=== PATIENT | male | born 1950 | race Caucasian/White ===

== ENCOUNTER 2021-08-26 17:59 | Emergency (ER) | payer OTHER, SELFPAY ==
[2021-08-26] VITALS (15 sets, daily range): BP systolic 106–152; BP diastolic 58–79; PULSE 54–63; RESP 14–22; TEMP 36.3; O2SAT 93–97; BMI 35.9
--- NOTE | 2021-08-26 18:41 | DI.RAD.S_ITS ---
PROCEDURE: XR CHEST 1V INDICATIONS: chest pain TECHNIQUE: One view of the chest was acquired. COMPARISON: None. FINDINGS: Surgical changes and devices: There is a leadless pacing device in the left upper thorax. Surgical fusion at the cervicothoracic junction. Lungs and pleura: Lungs are clear. No pleural effusions or pneumothorax. Mediastinum: Mediastinal contours appear normal. Heart size is normal. Bones and chest wall: No suspicious bony lesions. Overlying soft tissues appear unremarkable. IMPRESSION: No acute cardiopulmonary disease. Dictated by: Gianna Valverde M.D. on 08/26/2021 at 19:33 Approved by: Gianna Valverde M.D. on 08/26/2021 at 19:39
--- NOTE | 2021-08-26 18:41 | ED.CHESTPAIN ---
HPI - Chest Pain General Chief Complaint: Chest Pain Stated Complaint: Palps/Anxiety, Has Zio Patch Time Seen by Provider: 08/26/21 18:07 Source: patient and family Mode of arrival: Ambulatory Limitations: no limitations History of Present Illness HPI narrative: 71-year-old male former smoker with history of chest pain, currently wearing a ZIO patch to evaluate for palpitations presents with his in the chief complaint of a sudden onset sharp and stabbing chest pain across his anterior chest that started a few hours prior to his arrival. It seems to come and go at times with a mind of his own but certainly with a big deep breath. It largely resolved prior to his arrival. He denies any heaviness or squeezing. He denies any radiation to his back or jaw. He is not dizzy nor weak or lightheaded but does admit to some hacking cough for some time. He has had no fever chills. He denies any exertional symptoms or any recent exercise intolerance. He has had no history of blood clot, recent travel, known cancer or use of any hormone replacement Related Data Home Medications Medication Instructions Recorded Confirmed omeprazole 20 mg capsule,delayed 20 mg PO QDAY #0 08/30/17 release Allergies Allergy/AdvReac Type Severity Reaction Status Date / Time DIARY PRODUCTS Allergy Intermediate NASAL Uncoded 02/18/18 12:21 CONGESTION IV CONTRAST IODINE Allergy Mild SWELL UP Uncoded 02/18/18 12:21 AND Review of Systems Review of Systems Narrative: GENERAL: Denies chills, fatigue, malaise, fever, sweats. HEENT: Denies sinus pain, ear pain, sore throat, difficulty swallowing, dizziness. RESPIRATORY: Denies dyspnea, cough, wheezing, hemoptysis, sputum. CARDIOVASCULAR: See HPI GASTROINTESTINAL: Denies nausea, vomiting, abdominal pain, diarrhea, constipation, melena. : Denies dysuria, frequency, incontinence, hematuria, urinary retention. MUSCULOSKELETAL: denies weakness, joint pain, or bony pain SKIN: Denies rash, skin lesions, or other NEUROLOGIC: Denies weakness, headache, numbness, change in speech, confusion, seizures, incoordination. PSYCHIATRIC: No concerning psychosocial issues. 12 point review of systems is negative except for those stated above Patient History Social History Smoking Status: Former smoker Smoking Status: Former smoker alcohol intake frequency: holidays/special occasions only Substance Use Type: does not use Exam Narrative Exam Narrative: GENERAL: [71 year old patient appears stated age. Well-developed patient, in mild distress. HEAD: Atraumatic. Normocephalic. EYES: Pupils equal round and reactive. Extraocular motions intact. No scleral icterus. No injection or drainage. ENT: Nose without bleeding, purulent drainage. Throat without erythema, tonsillar hypertrophy or exudate. Airway patent. NECK: Trachea midline. Non tender CARDIOVASCULAR: Regular rate and rhythm without murmurs, gallops, or rubs. RESPIRATORY: Clear to auscultation. Breath sounds equal bilaterally. No wheezes, rales, or rhonchi. GASTROINTESTINAL: Abdomen soft, non-tender, nondistended. EXTREMITIES: No edema or joint tenderness. BACK: Nontender without deformity or crepitance. No flank tenderness. NEURO: AOx3. SKIN: No rash or erythema of visible areas Initial Vital Signs Initial Vital Signs: Vital Signs Temperature 97.3 F L 08/26/21 18:28 Pulse Rate 63 08/26/21 18:28 Respiratory Rate 18 08/26/21 18:28 Blood Pressure 135/78 08/26/21 18:28 Pulse Oximetry 96 08/26/21 18:28 Scores PERC Score Age greater than or equal to 50 years: Yes Heart rate greater than or equal to 100 bpm: No Room Air O2 Sat less than 95%: No Unilateral leg swelling: No Recent trauma or surgery: No Hemoptysis: No Prior PE or DVT: No Hormone Use: No Total PERC Score: 1 Wells' Criteria for PE Clinical signs and symptoms of DVT: No PE is #1 Dx or equally likely: No Heart rate > 100: No Immobilization at least 3 days or surg in previous 4 weeks: No History of PE or DVT: No Hemoptysis: No Malignancy w/Treatment within 6 months or palliative: No Wells' PE Score total: 0 Course Orders Ordered: ED Orders 08/26/21 18:35 EKG-12 Lead Stat 08/26/21 18:41 XR chest 1V Stat 08/26/21 19:20 Complete Blood Count AUTO DIFF Stat Comprehensive Metabolic Panel Stat Lipase Stat Troponin & CK Cardiac Panel Stat 08/26/21 19:26 D Dimer Stat 08/26/21 21:15 Troponin & CK Cardiac Panel Stat 08/26/21 21:20 EKG-12 Lead Stat 08/26/21 23:10 CT angio chest PE protocol Stat Discontinued Medications Diphenhydramine HCl (Diphenhydramine 50 Mg/Ml Vial) 25 mg IV NOW ONE Stop: 08/26/21 21:54 Last Admin: 08/26/21 22:06 Dose: 25 mg Documented by: DONAVON Famotidine (Famotidine 20 Mg/2 Ml Vial) 20 mg IV NOW [facility] Last Admin: 08/26/21 22:06 Dose: 20 mg Documented by: DONAVON Sodium Chloride (Normal Saline 0.9%) 1,000 mls @ 150 mls/hr IV CONT [facility] Last Infusion: 08/27/21 00:26 Dose: 0 mls/hr Documented by: Admin: 08/26/21 19:43 Dose: 150 mls/hr Documented by: DONAVON Methylprednisolone (Methylprednisolone 125 Mg/2 Ml Vial) 125 mg IV NOW ONE Stop: 08/26/21 21:54 Last Admin: 08/26/21 22:06 Dose: 125 mg Documented by: DONAVON Vital Signs Vital signs: Vital Signs - 8 hr 08/26/21 19:30 08/26/21 20:00 08/26/21 20:26 Pulse Rate 58 L 56 L Respiratory Rate 14 20 15 Blood Pressure 130/69 106/58 L Pulse Oximetry 94 95 93 08/26/21 20:30 08/26/21 21:00 08/26/21 21:30 Pulse Rate 57 L 57 L 56 L Respiratory Rate 14 18 19 Blood Pressure 113/60 115/68 Pulse Oximetry 93 94 94 08/26/21 22:00 08/26/21 22:01 08/26/21 22:30 Pulse Rate 54 L 54 L 56 L Respiratory Rate 17 19 Blood Pressure 127/60 Pulse Oximetry 94 94 96 08/26/21 22:31 08/26/21 23:00 08/26/21 23:24 Pulse Rate 56 L 58 L 60 Respiratory Rate 19 22 14 Blood Pressure 134/63 126/79 152/70 H Pulse Oximetry 95 96 97 MDM - Chest Pain Lab Data Result diagrams: 08/26/21 19:20 08/26/21 19:20 Labs: Lab Results 10/17/21 10/17/21 10/17/21 Range/Units 19:20 19:20 19:26 WBC 7.5 (4.5-11.0) X10^3/uL RBC 4.45 L (4.5-5.9) X10^6/uL Hgb 14.5 (13.5-17.5) g/dL Hct 42.4 (41-53) % MCV 95.5 (80-100) fL MCH 32.6 (26-34) PG MCHC 34.1 (30-36) % RDW 13.4 (11.6-14.8) % Plt Count 194 (150-400) X10^3/uL Neut % (Auto) 54.3 (50-75) % Lymph % (Auto) 30.5 (25-40) % Screven % (Auto) 8.4 (3-14) % Eos % (Auto) 6.3 H (2-4) % Baso % (Auto) 0.5 (0-2) % Neut # (Auto) 4100 (0622-5273) /uL Lymph # (Auto) 2300 (6436-5260) /uL Screven # (Auto) 600 (0-900) /uL Eos # (Auto) 500 H (0-450) /uL Baso # (Auto) 0 (0-100) /uL D-Dimer 380 H (<230) ng/mL Sodium 138 (137-145) mmol/L Potassium 4.4 (3.4-5.1) mmol/L Chloride 104 (98-107) mmol/L Carbon Dioxide 25 (22-32) mmol/L BUN 20 (9-20) mg/dL Creatinine 1.14 (0.66-1.25) mg/dL Estimated GFR > 60.0 (>60) mL/min BUN/Creatinine Ratio 17.5 (6-22) Glucose 147 H (80-110) mg/dL Calcium 9.0 (8.4-10.2) mg/dL Total Bilirubin 0.4 (0.2-1.3) mg/dL AST 41 (17-59) IU/L ALT 35 (<50) IU/L Alkaline Phosphatase 76 (38-126) U/L Total Creatine Kinase 143 (55-170) U/L CK-MB (CK-2) 2.14 (<2.37) ng/mL CK-MB (CK-2) Rel Index 1.5 (1.5-5.0) % Troponin I < 0.012 (0.01-0.034) ng/mL Total Protein 7.3 (6.3-8.2) g/dL Albumin 4.3 (3.5-5.0) g/dL Globulin 3.0 (1.7-4.1) g/dL Albumin/Globulin Ratio 1.4 (1.0-2.8) Lipase 176 (23-300) U/L 08/26/21 Range/Units 21:15 WBC (4.5-11.0) X10^3/uL RBC (4.5-5.9) X10^6/uL Hgb (13.5-17.5) g/dL Hct (41-53) % MCV (80-100) fL MCH (26-34) PG MCHC (30-36) % RDW (11.6-14.8) % Plt Count (150-400) X10^3/uL Neut % (Auto) (50-75) % Lymph % (Auto) (25-40) % Screven % (Auto) (3-14) % Eos % (Auto) (2-4) % Baso % (Auto) (0-2) % Neut # (Auto) (6222-1017) /uL Lymph # (Auto) (3561-7176) /uL Screven # (Auto) (0-900) /uL Eos # (Auto) (0-450) /uL Baso # (Auto) (0-100) /uL D-Dimer (<230) ng/mL Sodium (137-145) mmol/L Potassium (3.4-5.1) mmol/L Chloride (98-107) mmol/L Carbon Dioxide (22-32) mmol/L BUN (9-20) mg/dL Creatinine (0.66-1.25) mg/dL Estimated GFR (>60) mL/min BUN/Creatinine Ratio (6-22) Glucose (80-110) mg/dL Calcium (8.4-10.2) mg/dL Total Bilirubin (0.2-1.3) mg/dL AST (17-59) IU/L ALT (<50) IU/L Alkaline Phosphatase (38-126) U/L Total Creatine Kinase 128 (55-170) U/L CK-MB (CK-2) 2.34 (<2.37) ng/mL CK-MB (CK-2) Rel Index 1.8 (1.5-5.0) % Troponin I < 0.012 (0.01-0.034) ng/mL Total Protein (6.3-8.2) g/dL Albumin (3.5-5.0) g/dL Globulin (1.7-4.1) g/dL Albumin/Globulin Ratio (1.0-2.8) Lipase (23-300) U/L Imaging Data CT scan - chest: Radiologist's Impression: Layo Bloom??71??M??1950 ? Allergy/Adv: [DIARY PRODUCTS], [IV CONTRAST IODINE] (More??) Close Chest CTA (Signed) Esme Cummings - 08/26/21 Chest X-Ray (Signed) Ezra Valverde - 08/26/21 Radiology - Historical 08/30/17 Radiology - Historical 08/30/17 Radiology - Historical 08/30/17 Launch?[place] [address] CT Scan Report Signed Patient: Layo Bloom MR#: [id number] : 1950 Acct:[id number] Age/Sex: 71 / M Date of Service: 08/26/21 Loc: ED Accession Number: [id number] ?? Procedure: CT angio chest PE protocol Ordering Provider: Giacomo Villafuerte D.O. PROCEDURE:? CT ANGIO CHEST PE PROTOCOL ? INDICATIONS:? chest pain, cough, elevated d dimer, elevated wells/PERC ? TECHNIQUE:? After the administration of intravenous contrast, 2 mm thick sections acquired from the pulmonary apices to the posterior costophrenic angles.? 3-dimensional maximum intensity projection (MIP) coronal and sagittal reformats were then acquired through the thorax.? For radiation dose reduction, the following was used:? automated exposure control, adjustment of mA and/or kV according to patient size.? ? COMPARISON:? None. ? FINDINGS:? Image quality:? Excellent.? ? Pulmonary arteries:? Pulmonary arteries are normal in size, and demonstrate no intraluminal filling defects to suggest central pulmonary embolism.? ? Lungs and pleura:? Lungs are clear.? No pleural effusions or pneumothorax.? Central and peripheral airways are patent.? ? Mediastinum:? Heart size is enlarged, without pericardial effusion.? No mediastinal or hilar adenopathy.? Thoracic aorta is normal in caliber and enhancement.? Esophagus is normal in caliber, with trace hiatal hernia.? ? Bones and chest wall:? No suspicious bony lesions.? Ribs and thoracic spine appear intact throughout.? Thyroid gland is unremarkable.? No axillary or supraclavicular adenopathy.? ? Abdomen:? Visualized upper abdominal solid organs appear normal in the early arterial phase of enhancement.? ? IMPRESSION:? ? 1. Lungs are clear.? No pulmonary embolism.? ? ? Dictated by: Esme Cummings M.D. on 08/26/2021 at 23:39 ? ? Approved by: Esme Cummings M.D. on 08/26/2021 at 23:42 ? ECG Data Interpretation: EKG is normal sinus rhythm rate [60] and free of any signs of ischemia or ectopy. No ST segmental elevation or depression. No T wave inversions. First-degree AV block with AL of 214 MDM Narrative Medical decision making narrative: Multiple causes of chest pain considered including ME, PE, pneumothorax, pneumonia, aortic dissection, and pleurisy. Patient reports no radiation, no diaphoresis, no provocation with exertion, and no vomiting. EKG nonischemic and troponin x2 is negative. Pulmonary embolism considered with pleuritic type chest pain ongoing cough and had D-dimer above the age corrected cutoff. Patient lists an allergy to the IV contrast and he was pretreated, we waited 1 hour prior to the administration of IV contrast. The study was unremarkable. Other diagnoses such as pericarditis considered but thought unlikely given lack of ongoing symptoms or EKG findings. Musculoskeletal etiology considered. GI causes such as pancreatitis and gallbladder disease considered but thought unlikely given lack of epigastric pain, associated with eating, or lab abnormalities. Return precautions given and questions answered to his apparent satisfaction Discharge Plan Departure Patient Disposition: Home Clinical Impression: Chest pain of unknown etiology Instructions: DI for Atypical Chest Pain Activity Restrictions/Additional Instructions: *You have been diagnosed with [chest pain with very reassuring history, physical exam, labs, EKG and imaging. No evidence of heart attack, blood clot or other diagnosis that would require a specific or immediate intervention *What to do: *Please continue to take your regular medications as directed. [ ] New medication prescriptions sent to your pharmacy: [ ] [ ] New medication written as a paper prescription [x ] No new medications given *Please follow up with your primary care provider in 2-3 days, call for an appointment. Let them know you were seen in the Emergency Department and that we ask that you be seen in follow up. We will electronically transmit a record of today's note if your PCP is in our system *If you do not have a primary care provider please contact the [facility] Resource line at [phone]. They will ask some questions about your medical history and help get you set up with a doctor in the community. *Return to Emergency Department if you should have any new, worsening or concerning symptoms, such as [fever greater than 101 F, shaking chills, worsening pain, persistent vomiting or other bothersome symptoms] Prescriptions: No Action omeprazole 20 MG capsule,delayed release(DR/EC) 20 mg PO QDAY Qty: 0 RF: 0 Referrals: Rolo Naranjo DO [Primary Care Provider] -
[2021-08-26 19:32] LABS: Add Manual Diff / Slide Review NO; Basophils Absolute Auto 0 /uL (0-100); Basophils Percent Auto 0.5 % (0-2); Eosinophils Absolute Auto 500 /uL (0-450); Eosinophils Percent Auto 6.3 % (2-4); Hematocrit 42.4 % (41-53); Hemoglobin 14.5 g/dL (13.5-17.5); Lymphocytes Absolute Auto 2300 /uL (1100-4500); Lymphocytes Percent Auto 30.5 % (25-40); Mean Corpuscular HGB Conc 34.1 % (30-36); Mean Corpuscular Hemoglobin 32.6 PG (26-34); Mean Corpuscular Volume 95.5 fL (80-100); Monocytes Absolute Auto 600 /uL (0-900); Monocytes Percent Auto 8.4 % (3-14); Neutrophils Absolute Auto 4100 /uL (1500-7000); Neutrophils Percent Auto 54.3 % (50-75); Platelet Count 194 X10^3/uL (150-400); Red Blood Cell Count 4.45 X10^6/uL (4.5-5.9); Red Cell Distribution Width 13.4 % (11.6-14.8); White Blood Cell Count 7.5 X10^3/uL (4.5-11.0)
[2021-08-26] MEDS: SODIUM CHLORIDE 0.9% 1,000 ML 150 ML IV (19:43)
[2021-08-26 19:52] LABS: Alanine Aminotransferase 35 IU/L (<50); Albumin 4.3 g/dL (3.5-5.0); Albumin Globulin Ratio 1.4 (1.0-2.8); Alkaline Phosphatase 76 U/L (38-126); Aspartate Aminotransferase 41 IU/L (17-59); BUN Creatinine Ratio 17.5 (6-22); Bilirubin Total 0.4 mg/dL (0.2-1.3); Blood Urea Nitrogen 20 mg/dL (9-20); Carbon Dioxide 25 mmol/L (22-32); Chloride 104 mmol/L (98-107); Creatine Kinase 143 U/L (55-170); Estimated Glomerular Filt Rate > 60.0 mL/min (>60); Glucose 147 mg/dL (80-110); Lipase 176 U/L (23-300); Sodium 138 mmol/L (137-145); Total Protein 7.3 g/dL (6.3-8.2)
[2021-08-26 19:56] LABS: Potassium 4.4 mmol/L (3.4-5.1)
[2021-08-26 20:04] LABS: Troponin I < 0.012 ng/mL (0.01-0.034)
[2021-08-26 20:07] LABS: CKMB % Relative Index 1.5 % (1.5-5.0); Creatine Kinase MB 2.14 ng/mL (<2.37)
[2021-08-26 20:10] LABS: HEMOLYSIS 49 (0-50)
[2021-08-26 21:21] LABS: D Dimer 380 ng/mL (<230)
[2021-08-26 21:49] LABS: Creatine Kinase 128 U/L (55-170)
[2021-08-26 22:02] LABS: Troponin I < 0.012 ng/mL (0.01-0.034)
[2021-08-26 22:06] LABS: CKMB % Relative Index 1.8 % (1.5-5.0); Creatine Kinase MB 2.34 ng/mL (<2.37)
[2021-08-26] MEDS: diphenhydrAMINE 50 MG/ML VIAL 25 MG IV (22:06)
[2021-08-26] MEDS: FAMOTIDINE 20 MG/2 ML VIAL IV (22:06)
[2021-08-26] MEDS: methylPREDNISolone 125 MG/2 ML VIAL IV (22:06)
--- NOTE | 2021-08-26 23:10 | DI.CT.S_ITS ---
PROCEDURE: CT ANGIO CHEST PE PROTOCOL INDICATIONS: chest pain, cough, elevated d dimer, elevated wells/PERC TECHNIQUE: After the administration of intravenous contrast, 2 mm thick sections acquired from the pulmonary apices to the posterior costophrenic angles. 3-dimensional maximum intensity projection (MIP) coronal and sagittal reformats were then acquired through the thorax. For radiation dose reduction, the following was used: automated exposure control, adjustment of mA and/or kV according to patient size. COMPARISON: None. FINDINGS: Image quality: Excellent. Pulmonary arteries: Pulmonary arteries are normal in size, and demonstrate no intraluminal filling defects to suggest central pulmonary embolism. Lungs and pleura: Lungs are clear. No pleural effusions or pneumothorax. Central and peripheral airways are patent. Mediastinum: Heart size is enlarged, without pericardial effusion. No mediastinal or hilar adenopathy. Thoracic aorta is normal in caliber and enhancement. Esophagus is normal in caliber, with trace hiatal hernia. Bones and chest wall: No suspicious bony lesions. Ribs and thoracic spine appear intact throughout. Thyroid gland is unremarkable. No axillary or supraclavicular adenopathy. Abdomen: Visualized upper abdominal solid organs appear normal in the early arterial phase of enhancement. IMPRESSION: 1. Lungs are clear. No pulmonary embolism. Dictated by: Esme Cummings M.D. on 08/26/2021 at 23:39 Approved by: Esme Cummings M.D. on 08/26/2021 at 23:42
--- NOTE | 2021-08-26 23:28 | PC.NURSE ---
Pt doing well after CT scan. No allergic reaction noted. Pt informed to press the call maradiaga with ANY changes. Will continue to monitor closely
== END 2021-08-27 00:26 | disposition home or self-care (01) ==
PROVIDERS: Emergency Provider Emergency Medicine; Family Provider Family Medicine; PCP Family Medicine
DX: R07.9 Chest pain, unspecified (principal)
CPT/HCPCS: 36415; 71045; 71275; 80053; 82550; 82553; 83690; 84484; 85025; 85379; 93005; 93010; 96361; 96374; 96375; 99284; 99285; J1200; J2930; Q9967

== ENCOUNTER → 2024-06-29 11:48 | Outpatient (CLI) | payer MEDICARE, SELFPAY ==
[2024-06-29 13:05] LABS: Add Manual Diff / Slide Review NO; Basophils Absolute Auto 0 /uL (0-100); Basophils Percent Auto 0.8 % (0-2); Eosinophils Absolute Auto 300 /uL (0-450); Eosinophils Percent Auto 5.3 % (2-4); Hematocrit 41.8 % (41-53); Hemoglobin 14.3 g/dL (13.5-17.5); Lymphocytes Absolute Auto 1600 /uL (1100-4500); Lymphocytes Percent Auto 28.1 % (25-40); Mean Corpuscular HGB Conc 34.3 % (30-36); Mean Corpuscular Hemoglobin 33.1 PG (26-34); Mean Corpuscular Volume 96.3 fL (80-100); Monocytes Absolute Auto 400 /uL (0-900); Monocytes Percent Auto 6.9 % (3-14); Neutrophils Absolute Auto 3400 /uL (1500-7000); Neutrophils Percent Auto 58.9 % (50-75); Platelet Count 192 X10^3/uL (150-400); Red Blood Cell Count 4.34 X10^6/uL (4.5-5.9); Red Cell Distribution Width 13.3 % (11.6-14.8); White Blood Cell Count 5.8 X10^3/uL (4.5-11.0)
[2024-06-29 13:19] LABS: Alanine Aminotransferase 19 IU/L (<50); Albumin 4.5 g/dL (3.5-5.0); Albumin Globulin Ratio 1.4 (1.0-2.8); Alkaline Phosphatase 68 U/L (38-126); Aspartate Aminotransferase 34 IU/L (17-59); BUN Creatinine Ratio 10.6 (6-22); Bilirubin Total 0.7 mg/dL (0.2-1.3); Blood Urea Nitrogen 13 mg/dL (9-20); Calcium 9.5 mg/dL (8.4-10.2); Carbon Dioxide 25 mmol/L (22-32); Chloride 105 mmol/L (98-107); Cholesterol 179 mg/dL (140-199); Estimated Glomerular Filt Rate > 60 mL/min (>60); Globulin 3.2 g/dL (1.7-4.1); Glucose 110 mg/dL (80-110); HDL Cholesterol 55 mg/dL (40-60); HEMOLYSIS < 15 (0-50); LDL Cholesterol Calculated 108 mg/dL (<100); Potassium 4.5 mmol/L (3.4-5.1); Sodium 139 mmol/L (137-145); Total Protein 7.7 g/dL (6.3-8.2); Triglycerides 79 mg/dL (35-150)
[2024-06-29 13:51] LABS: Prostate Specific Antigen Scrn 0.711 ng/mL (0.1-4.0)
[2024-06-29 14:05] LABS: TSH w/ Reflex to FT4 1.74 uIU/mL (0.47-4.68)
== END ==
PROVIDERS: Family Provider Family Medicine; PCP Family Medicine; Referring Provider Family Medicine; Visit Provider Family Medicine
DX: E78.5 Hyperlipidemia, unspecified (principal); I10 Essential (primary) hypertension; Z12.5 Encounter for screening for malignant neoplasm of prostate; G20.A1 Parkinson's disease without dyskinesia, without mention of fluctuations
CPT/HCPCS: 36415; 80053; 80061; 84443; 85025; G0103

== ENCOUNTER → 2024-08-18 | Outpatient (CLI) | payer MEDICARE, SELFPAY ==
--- NOTE | 2024-08-18 16:05 | DI.US.S_ITS ---
PROCEDURE: US PERIPH VENOUS LOW EXTREM RT INDICATIONS: MEDIAL RIGHT THIGH PAIN/LUMP WORSE WITH WALKING TECHNIQUE: Real-time imaging, as well as color and pulse Doppler interrogation, were performed of the lower extremity deep veins from the inguinal ligament to the popliteal fossa, with documentation of the visualized calf veins. COMPARISON: None. FINDINGS: The common femoral, femoral, popliteal, and the visualized calf veins are normally compressible, and free of intraluminal thrombus. Color and pulse Doppler demonstrate normal phasic intraluminal flow. There is normal augmentation response to distal compression maneuver. IMPRESSION: No findings of lower extremity deep venous thrombosis. Approved by: Hilary Jaquez M.D.,Ph.D. on 08/18/2024 at 17:13
--- NOTE | 2024-08-18 16:10 | DI.RAD.S_ITS ---
PROCEDURE: XR KNEE RT 4V INDICATIONS: Rt knee pain, suspect OA TECHNIQUE: 3 views of the knee were acquired. COMPARISON: [facility], , KNEE 1-2 VIEWS RIGHT, 08/30/2017, 14:22. FINDINGS: Bones: Status post left knee total arthroplasty. Right knee tricompartmental joint space narrowing, endplate sclerosis and large osteophytosis. No fractures or dislocations. No suspicious bony lesions. Soft tissues: No joint effusion. No suspicious soft tissue calcifications. IMPRESSION: Severe tricompartmental osteoarthrosis. No acute osseous abnormality. Approved by: Hilary Jaquez M.D.,Ph.D. on 09/07/2024 at 1:04
== END ==
LOC: US 16:05
PROVIDERS: Family Provider Family Medicine; PCP Family Medicine; Referring Provider Physician Assistant; Visit Provider Physician Assistant
DX: M79.651 Pain in right thigh (principal); M25.561 Pain in right knee; M17.11 Unilateral primary osteoarthritis, right knee
CPT/HCPCS: 73564; 93971

== ENCOUNTER 2024-09-30 16:19 | Emergency (ER) | payer MEDICARE, SELFPAY ==
[2024-09-30 16:24] VITALS: BP 146/70; PULSE 60; RESP 12; TEMP 36.3; O2SAT 95; BMI 25.7
--- NOTE | 2024-09-30 16:43 | DI.RAD.S_ITS ---
PROCEDURE: XR HIP W PEL IF DONE RT 2V INDICATIONS: pain in hip, groin, to knee right side TECHNIQUE: 2 views of the hip were acquired. COMPARISON: None. FINDINGS: Bones: No fractures or dislocations. No suspicious bony lesions. The visualized pelvic ring appears intact. Soft tissues: No suspicious soft tissue calcifications or masses. IMPRESSION: No acute bony abnormality. Dictated by: Daniel Sosa M.D. on 09/30/2024 at 17:17 Approved by: Daniel Sosa M.D. on 09/30/2024 at 17:17
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
--- NOTE | 2024-09-30 18:53 | ED.PSYCH ---
HPI - Psych General Chief Complaint: Psychiatric Symptoms Stated Complaint: mental health, SI Time Seen by Provider: 09/30/24 17:06 Source: patient Mode of arrival: Ambulatory History of Present Illness HPI Narrative: 74-year-old male with history of Parkinson's disease presents for mental health evaluation. History obtained with assistance of at bedside. for the last month patient's Parkinson's has been getting worse and he was also been dealing with right-sided hip pain. Today the patient was very worn out and frustrated and told his that maybe it would be better if he . became concerned and decided to bring him in for evaluation. Patient currently denying thoughts of wanting to harm himself, denies wanting to harm anyone else. He states that he was very frustrated and overall very tired. states that symptoms has been improved with ibuprofen. They have not used any other medications for pain Related Data Previous Rx's Medication Instructions Recorded atenolol 50 mg tablet 50 mg PO DAILY #90 tabs 06/29/24 atorvastatin 40 mg tablet 40 mg PO DAILY #90 tabs 06/29/24 bupropion HCl 200 mg tablet,12 hr 200 mg PO QAM #90 ea 06/29/24 sustained-release carbidopa 25 mg-levodopa 100 mg 1 tab PO 4XD 90 days #360 tabs 06/29/24 tablet fluoxetine 20 mg capsule 20 mg PO DAILY #90 caps 06/29/24 lisinopril 5 mg tablet 5 mg PO DAILY #90 tabs 06/29/24 pantoprazole 40 mg tablet,delayed 40 mg PO DAILY #90 tabs 06/29/24 release pimavanserin 34 mg capsule 34 mg PO DAILY #90 caps 06/29/24 (Nuplazid) Allergies Allergy/AdvReac Type Severity Reaction Status Date / Time DIARY PRODUCTS Allergy Intermediate NASAL Uncoded 08/18/24 15:32 CONGESTION IV CONTRAST IODINE Allergy Mild SWELL UP Uncoded 08/18/24 15:32 AND Patient History Medical History Foot pain (~2009) Hearing loss (~2009) Colon polyps (~2021) History of squamous cell carcinoma (~2022) History of melanoma (~2022) GERD (gastroesophageal reflux disease) Parkinson's disease (~2022) Generalized anxiety disorder Hyperlipidemia Hypertension Dementia Surgical History Anesthesia History of coronary artery stent placement (~2003) History of back surgery History of knee replacement (~2003) Family History Father Congestive heart failure Mother History of heart disease Sister Diabetes mellitus Social History Smoking Status: Former smoker Smoking Status: Former smoker alcohol intake frequency: holidays/special occasions only Substance Use Type: does not use Exam Initial Vital Signs Initial Vital Signs: Vital Signs Temperature 97.4 F L 09/30/24 16:24 Pulse Rate 60 09/30/24 16:24 Respiratory Rate 12 09/30/24 16:24 Blood Pressure 146/70 H 09/30/24 16:24 Pulse Oximetry 95 09/30/24 16:24 Oxygen Delivery Method Room Air 09/30/24 16:24 Const: Awake, alert, no acute distress, nontoxic appearing Cardiac: regular rate, regular rhythm RESP: unlabored, clear bilaterally, no wheezing MSK: no deformity, full range of motion, pulses equal Skin: Warm, Dry, intact, no rashes Neuro: AO x3, CN II-XII grossly intact, moves all extremities Course Orders Ordered: ED Orders 09/30/24 16:43 XR hip w pel if done RT 2V Stat 09/30/24 17:06 Consult to GUN MECHANIC - Finger Lift Operator Stat Vital Signs Vital signs: Vital Signs - 8 hr 09/30/24 19:03 09/30/24 19:22 Pulse Rate 54 L 52 L Respiratory Rate 14 20 Blood Pressure 131/71 131/71 Pulse Oximetry 99 94 Oxygen Delivery Method Room Air MDM - Psych Imaging Data Extremity x-ray #1: Radiologist's Impression: PROCEDURE: XR HIP W PEL IF DONE RT 2V INDICATIONS: pain in hip, groin, to knee right side TECHNIQUE: 2 views of the hip were acquired. COMPARISON: None. FINDINGS: Bones: No fractures or dislocations. No suspicious bony lesions. The visualized pelvic ring appears intact. Soft tissues: No suspicious soft tissue calcifications or masses. IMPRESSION: No acute bony abnormality. Dictated by: Daniel Sosa M.D. on 09/30/2024 at 17:17 Approved by: Daniel Sosa M.D. on 09/30/2024 at 17:17 MDM Narrative Medical decision making narrative: patient presenting for passive suicidal statement made to his earlier today. Patient denies wanting to harm himself, he states that he was tired of being in pain and overall very frustrated and tired. He has had only some pain relief with ibuprofen given by his . They are requesting social work consult. Social work has spoken with patient and at bedside, resources provided, patient has upcoming primary care appointment scheduledOn October 11. X-ray imaging shows no acute findings in the patient's right hip. I recommended addition of Tylenol for added pain control. I did offer a small amount of narcotic pain medication if the patient's pain was not controlled with Tylenol and ibuprofen, with the understanding that this medication can put himAt increased risk of falls. Patient and declined stating that they would weight to get any additional pain medications untill seeing their primary doctor. Discharge Plan Departure Patient Disposition: Home Clinical Impression: Hip pain Instructions: DI for Hip Pain Activity Restrictions/Additional Instructions: Add Tylenol to the ibuprofen you are taking for your hip pain. Follow up with the mental health resources provided to you by our social studies department chair. Make sure that you keep your primary care appointment on the 11 of October as scheduled. Prescriptions: No Action atenolol 50 mg tablet 50 mg PO DAILY Qty: 90 3RF atorvastatin 40 mg tablet 40 mg PO DAILY Qty: 90 3RF bupropion HCl 200 mg tablet sustained-release 12 hr 200 mg PO QAM Qty: 90 3RF carbidopa-levodopa 25-100 mg tablet 1 tab PO 4XD 90 Days Qty: 360 3RF fluoxetine 20 mg capsule 20 mg PO DAILY Qty: 90 3RF lisinopril 5 mg tablet 5 mg PO DAILY Qty: 90 3RF pantoprazole 40 mg tablet,delayed release (DR/EC) 40 mg PO DAILY Qty: 90 3RF Nuplazid 34 mg capsule 34 mg PO DAILY Qty: 90 3RF Referrals: Loy Strauss, [Primary Care Provider] - Stand Alone Forms: Patient Portal/API/Survey
[2024-09-30 19:03] VITALS: BP 131/71; PULSE 54; RESP 14; O2SAT 99
[2024-09-30 19:22] VITALS: BP 131/71; PULSE 52; RESP 20; O2SAT 94
== END 2024-09-30 19:24 | disposition home or self-care (01) ==
PROVIDERS: Emergency Provider Emergency Medicine; Family Provider Family Medicine; PCP Family Medicine
DX: M25.551 Pain in right hip (principal); R45.851 Suicidal ideations
CPT/HCPCS: 73502; 99283

== ENCOUNTER 2025-03-13 18:06 | Emergency (ER) | payer MEDICARE, SELFPAY ==
[2025-03-13] VITALS (8 sets, daily range): BP systolic 102–120; BP diastolic 62–80; PULSE 49–57; RESP 13–22; TEMP 36.1; O2SAT 96–100; BMI 29.9
--- NOTE | 2025-03-13 19:19 | ED_ITS ---
HPI - Psych General Chief Complaint: Psychiatric Symptoms Stated Complaint: altered mental status, hx parkinsons/dementia Time Seen by Provider: 03/13/25 19:11 Source: patient Mode of arrival: Ambulatory History of Present Illness HPI Narrative: 74-year-old gentleman history of Parkinson's hypertension Parkinson's associated psychosis dyslipidemia and dementia presents with with the episode today whereby his friend is in the hospital at [facility] and stated that they were going to go visit him tomorrow but patient ended up being in the car with the dog and wanted to go visit him right at this point. told him they were going to go tomorrow but he got upset and walked off. brought dog home and drove in the car and found him nearby and when they got home he got upset because he thought that was not their house and they were going to get arrested for trespassing. He does not have any complaints at this time. Per there was a similar episode that happened about a month ago similar situation where they were taken to [facility] for similar complaint. Other than what is stated 14 point review of system is negative Related Data Previous Rx's Medication Instructions Recorded atenolol 50 mg tablet 50 mg PO DAILY #90 tabs 06/29/24 atorvastatin 40 mg tablet 40 mg PO DAILY #90 tabs 06/29/24 carbidopa 25 mg-levodopa 100 mg 1 tab PO 4XD 90 days #360 tabs 06/29/24 tablet fluoxetine 20 mg capsule 20 mg PO DAILY #90 caps 06/29/24 lisinopril 5 mg tablet 5 mg PO DAILY #90 tabs 06/29/24 pimavanserin 34 mg capsule 34 mg PO DAILY #90 caps 06/29/24 (Nuplazid) pantoprazole 40 mg tablet,delayed 40 mg PO DAILY #90 tabs 10/06/24 release bupropion HCl 300 mg 24 hr tablet, 300 mg PO QAM #90 tabs 10/11/24 extended release olanzapine 5 mg tablet 5 mg PO QPM #90 tabs 11/16/24 Allergies Allergy/AdvReac Type Severity Reaction Status Date / Time IV CONTRAST IODINE Allergy Mild SWELL UP Uncoded 03/13/25 18:15 AND Review of Systems Review of Systems ROS Unobtainable: All systems reviewed & are unremarkable except as noted in HPI and below Patient History Medical History (Updated 03/13/25 @ 22:13 by Holden Vu DO) Major depressive disorder, single episode, severe without psychotic features Foot pain (~2009) Hearing loss (~2009) Colon polyps (~2021) History of squamous cell carcinoma (~2022) History of melanoma (~2022) GERD (gastroesophageal reflux disease) Parkinson's disease (~2022) Generalized anxiety disorder Hyperlipidemia Hypertension Dementia Surgical History Anesthesia History of coronary artery stent placement (~2003) History of back surgery History of knee replacement (~2003) Family History Father Congestive heart failure Mother History of heart disease Sister Diabetes mellitus alcohol intake frequency: holidays/special occasions only Exam Narrative Exam Narrative: GENERAL: [74] year old patient appears stated age. Well-developed patient, in mild distress. HEAD: Atraumatic. Normocephalic. EYES: Pupils equal round and reactive. Extraocular motions intact. No scleral icterus. No injection or drainage. ENT: Nose without bleeding, purulent drainage. Throat without erythema, tonsillar hypertrophy or exudate. Airway patent. NECK: Trachea midline. Non tender CARDIOVASCULAR: Regular rate and rhythm without murmurs, gallops, or rubs. RESPIRATORY: Clear to auscultation. Breath sounds equal bilaterally. No wheezes, rales, or rhonchi. GASTROINTESTINAL: Abdomen soft, non-tender, nondistended. EXTREMITIES: No edema or joint tenderness. BACK: Nontender without deformity or crepitance. No flank tenderness. NEURO: AOx2. Gross neuro exam intact spontaneously moving all his extremities with no difficulty SKIN: No rash or erythema of visible areas Initial Vital Signs Initial Vital Signs: Vital Signs Temperature 97 F L 03/13/25 18:16 Pulse Rate 57 L 03/13/25 18:16 Respiratory Rate 17 03/13/25 18:16 Blood Pressure 102/62 03/13/25 18:16 Pulse Oximetry 96 03/13/25 18:16 Oxygen Delivery Method Room Air 03/13/25 18:16 Course Orders Ordered: ED Orders 03/13/25 18:32 Consult to ASSOCIATE RESEARCH SCIENTIST - Preventive Maintenance Coordinator Stat 03/13/25 19:48 Complete Blood Count AUTO DIFF Stat Comprehensive Metabolic Panel Stat Ethanol (ETOH) Stat Lactate (Lactic Acid) Stat Procalcitonin Stat Troponin & CK Cardiac Panel Stat 03/13/25 19:50 XR chest 1V Stat EKG-12 Lead Stat 03/13/25 20:40 Urine Drug Screen, Rapid Stat 03/13/25 21:16 Blood Culture Stat Discontinued Medications Lactated Ringer's (Lactated Ringers) 1,000 mls @ 1,000 mls/hr IV BOLUS ONE Stop: 03/13/25 21:28 Last Admin: 03/13/25 20:46 Dose: 1,000 mls/hr Documented By: JULIAN Vital Signs Vital signs: Vital Signs - 8 hr 03/13/25 18:16 03/13/25 19:45 03/13/25 19:45 Temperature 97 F L Pulse Rate 57 L 54 L Respiratory Rate 17 Blood Pressure 102/62 120/68 Pulse Oximetry 96 97 Oxygen Delivery Method Room Air 03/13/25 20:00 03/13/25 20:00 03/13/25 20:30 Temperature Pulse Rate 52 L 49 L Respiratory Rate 16 13 Blood Pressure 119/67 Pulse Oximetry 99 99 Oxygen Delivery Method 03/13/25 21:00 03/13/25 21:30 Temperature Pulse Rate 50 L 53 L Respiratory Rate 15 21 Blood Pressure Pulse Oximetry 99 99 Oxygen Delivery Method MDM - Psych Lab Data 03/13/25 19:48 03/13/25 19:48 Labs: Lab Results 03/13/25 03/13/25 Range/Units 19:48 20:40 WBC 7.3 (4.5-11.0) X10^3/uL RBC 4.03 L (4.5-5.9) X10^6/uL Hgb 13.2 L (13.5-17.5) g/dL Hct 38.8 L (41-53) % MCV 96.2 (80-100) fL MCH 32.9 (26-34) PG MCHC 34.2 (30-36) % RDW 13.3 (11.6-14.8) % Plt Count 213 (150-400) X10^3/uL Neut % (Auto) 60.5 (50-75) % Lymph % (Auto) 26.9 (25-40) % Banner % (Auto) 8.7 (3-14) % Eos % (Auto) 2.9 (2-4) % Baso % (Auto) 1.0 (0-2) % Neut # (Auto) 4400 (4299-3586) /uL Lymph # (Auto) 2000 (8304-7508) /uL Banner # (Auto) 600 (0-900) /uL Eos # (Auto) 200 (0-450) /uL Baso # (Auto) 100 (0-100) /uL Sodium 139 (137-145) mmol/L Potassium 4.6 (3.4-5.1) mmol/L Chloride 106 (98-107) mmol/L Carbon Dioxide 25 (22-32) mmol/L BUN 19 (9-20) mg/dL Creatinine 1.29 H (0.66-1.25) mg/dL Estimated GFR 58 L (>60) mL/min BUN/Creatinine Ratio 14.7 (6-22) Glucose 80 (70-99) mg/dL Lactate 0.7 (0.7-2.1) mmol/L Calcium 9.1 (8.4-10.2) mg/dL Total Bilirubin 0.6 (0.2-1.3) mg/dL AST 43 (17-59) IU/L ALT 12 (<50) IU/L Alkaline Phosphatase 68 (38-126) U/L Total Creatine Kinase 231 H (55-170) U/L Troponin I < 0.012 (0.01-0.034) ng/mL Total Protein 7.2 (6.3-8.2) g/dL Albumin 4.3 (3.5-5.0) g/dL Globulin 2.9 (1.7-4.1) g/dL Albumin/Globulin Ratio 1.5 (1.0-2.8) Procalcitonin 0.041 (<0.5) ng/mL U Opiates 300ng/mL cut Negative (Negative) Ur Oxycodone Screen Negative (Negative) Urine Methadone Screen Negative (Negative) Ur Barbiturates Screen Negative (Negative) U Tricyclic Antidepress Negative (Negative) Ur Phencyclidine Scrn Negative (Negative) Ur Amphetamines Screen Negative (Negative) U Methamphetamines Scrn Negative (Negative) Ur MDMA Scrn (Ecstasy) Negative (Negative) U Benzodiazepines Scrn Negative (Negative) Urine Cocaine Screen Negative (Negative) U Marijuana (THC) Screen Negative (Negative) Urine pH Normal (Normal) Urine Specific [place] Normal (Normal) Ethyl Alcohol < 10 ( - 10) mg/dL Ur Creatinine Normal (Normal) Urine Dip Bedside Urine Glucose Negative Bedside Urine Bilirubin - Negative Bedside Urine Ketone - Negative Urine Specific [place] 1.005 Bedside Urine Occult Blood - Negative Bedside Urine pH 6 Bedside Urine Protein - Negative Bedside Urine Urobilinogen - Negative Bedside Urine Nitrite - Negative Bedside Urine Leukocytes - Negative Esterase Imaging Data Chest x-ray: Radiologist's Impression: [address] [address] XRay Report Signed Patient: Layo Bloom MR#: [id number] : 1950 Acct:[id number] Age/Sex: 74 / M Date of Service: 03/13/25 Loc: ED Accession Number: [id number] Procedure: XR chest 1V Ordering Provider: Holden Vu D.O. PROCEDURE: XR CHEST 1V INDICATIONS: altered mental status TECHNIQUE: One view of the chest was acquired. COMPARISON: [facility], CT, CT ANGIO CHEST PE PROTOCOL, 08/26/2021, 23:07. [facility], CR, XR CHEST 1V, 08/26/2021, 19:22. FINDINGS: Surgical changes and devices: Cervical spine fixation. Lungs and pleura: Lungs are clear. No pleural effusions or pneumothorax. Mediastinum: Mediastinal contours appear unchanged. Scant calcification near the left hilum, unchanged. Heart size is normal. Bones and chest wall: No suspicious bony lesions. Overlying soft tissues appear unremarkable. IMPRESSION: No acute cardiopulmonary abnormality is seen. Dictated by: Vinh Hewitt M.D. on 03/13/2025 at 20:58 Approved by: Vinh Hewitt M.D. on 03/13/2025 at 21:00 [facility] Narrative Medical decision making narrative: All lab work, vital signs, nurse triage note, medication list, previous ER visits, and imaging modalities all reviewed. Patient has been pleasant cooperative here in ER and has had no outbursts here in the ER. Patient was given 1 L of lactated ringer bolus. Differential diagnosis includes dementia, electrolyte derangement, UTI, pneumonia. Follow up with PCP this week for follow up care. Discharge Plan Departure Patient Disposition: Home Clinical Impression: Acute dehydration Dementia Qualifiers: Dementia type: Alzheimer's Alzheimer's disease onset: unspecified onset D ementia severity: unspecified severity Dementia behavioral or psychological symptom: with other behavioral disturbance Qualified Code(s): G30.9 - Alzheimer's disease, unspecified; F02.818 - Dementia in other diseases classified elsewhere, unspecified severity, with other behavioral disturbance Instructions: DI for Alzheimer Disease Activity Restrictions/Additional Instructions: Return with new or worsening symptoms. Follow up with PCP for follow up care this week. Prescriptions: No Action pantoprazole 40 mg tablet,delayed release (DR/EC) 40 mg PO DAILY Qty: 90 3RF bupropion HCl 300 mg tablet extended release 24 hr 300 mg PO QAM Qty: 90 3RF atenolol 50 mg tablet 50 mg PO DAILY Qty: 90 3RF atorvastatin 40 mg tablet 40 mg PO DAILY Qty: 90 3RF carbidopa-levodopa 25-100 mg tablet 1 tab PO 4XD 90 Days Qty: 360 3RF fluoxetine 20 mg capsule 20 mg PO DAILY Qty: 90 3RF lisinopril 5 mg tablet 5 mg PO DAILY Qty: 90 3RF Nuplazid 34 mg capsule 34 mg PO DAILY Qty: 90 3RF olanzapine 5 mg tablet 5 mg PO QPM Qty: 90 1RF Referrals: Loy Strauss DO [Primary Care Provider] - Stand Alone Forms: Patient Portal/API/Survey
--- NOTE | 2025-03-13 19:21 | CM.SWNOTE ---
ED WASTEWATER SUPERINTENDENT Assessment Note: Pt is a 74yo male, resident of [place], is seen in the ED for a possible manic episode. Patient has a hx of Parkinson's and Dementia. Pt lives in a house with his , Kenia. Pt's Primary Care Provider is Dr. Loy Strauss and insurance is [facility] Medicare. Reviewed chart and discussed with multidisciplinary team pt's medical status and initial discharge needs. WASTEWATER SUPERINTENDENT consulted for possible caregiver resources to pt , it is reported pt has not been medication compliant which could attribute to behaviors. Patient pending medical work up by ED Provider. Plan of care evolving. Due to triaging needs, WASTEWATER SUPERINTENDENT noted pt contact information and can follow up with pt with additional resources if necessary. Plan: Pending medical work up, anticipating dc home with pt . TAYLOR Styles
--- NOTE | 2025-03-13 19:50 | EKG_ITS ---
[address] [address] Test Date: 2025-03-13 Pat Name: Layo Bloom Department: Room: Gender: Male Property Appraiser: BENNIE : 1950 Requested By: Order Number: [id number] Reading MD: Holden Gagnon MD Measurements Intervals [place] Rate: 52 P: [place]: QRS: -24 QRSD: 96 T: 1 QT: 470 QTc: 437 Interpretive Statements SINUS RHYTHM Electronically Signed On 03-14-2025 7:35:22 PDT by Holden Gagnon MD
--- NOTE | 2025-03-13 19:50 | DI.RAD.S_ITS ---
PROCEDURE: XR CHEST 1V INDICATIONS: altered mental status TECHNIQUE: One view of the chest was acquired. COMPARISON: [facility], CT, CT ANGIO CHEST PE PROTOCOL, 08/26/2021, 23:07. [facility], CR, XR CHEST 1V, 08/26/2021, 19:22. FINDINGS: Surgical changes and devices: Cervical spine fixation. Lungs and pleura: Lungs are clear. No pleural effusions or pneumothorax. Mediastinum: Mediastinal contours appear unchanged. Scant calcification near the left hilum, unchanged. Heart size is normal. Bones and chest wall: No suspicious bony lesions. Overlying soft tissues appear unremarkable. IMPRESSION: No acute cardiopulmonary abnormality is seen. Dictated by: Vinh Hewitt M.D. on 03/13/2025 at 20:58 Approved by: Vinh Hewitt M.D. on 03/13/2025 at 21:00
[2025-03-13 20:11] LABS: Add Manual Diff / Slide Review NO; Basophils Absolute Auto 100 /uL (0-100); Eosinophils Absolute Auto 200 /uL (0-450); Eosinophils Percent Auto 2.9 % (2-4); Hematocrit 38.8 % (41-53); Hemoglobin 13.2 g/dL (13.5-17.5); Lymphocytes Absolute Auto 2000 /uL (1100-4500); Lymphocytes Percent Auto 26.9 % (25-40); Mean Corpuscular HGB Conc 34.2 % (30-36); Mean Corpuscular Hemoglobin 32.9 PG (26-34); Mean Corpuscular Volume 96.2 fL (80-100); Monocytes Absolute Auto 600 /uL (0-900); Monocytes Percent Auto 8.7 % (3-14); Neutrophils Absolute Auto 4400 /uL (1500-7000); Neutrophils Percent Auto 60.5 % (50-75); Platelet Count 213 X10^3/uL (150-400); Red Blood Cell Count 4.03 X10^6/uL (4.5-5.9); Red Cell Distribution Width 13.3 % (11.6-14.8); White Blood Cell Count 7.3 X10^3/uL (4.5-11.0)
--- NOTE | 2025-03-13 20:15 | EKG_ITS ---
[address] [address] Test Date: 2025-03-13 Pat Name: Layo Bloom Department: Room: Gender: Male Paramedical Aide: BENNIE : 1950 Requested By: Order Number: [id number] Reading MD: Holden Gagnon MD Measurements Intervals [place] Rate: 53 P: 51 MS: 224 QRS: -4 QRSD: 90 T: 15 QT: 476 QTc: 446 Interpretive Statements Sinus bradycardia with 1st degree AV block Electronically Signed On 03-14-2025 7:35:25 PDT by Holden Gagnon MD
[2025-03-13 20:16] LABS: Alanine Aminotransferase 12 IU/L (<50); Albumin 4.3 g/dL (3.5-5.0); Albumin Globulin Ratio 1.5 (1.0-2.8); Alkaline Phosphatase 68 U/L (38-126); Aspartate Aminotransferase 43 IU/L (17-59); BUN Creatinine Ratio 14.7 (6-22); Bilirubin Total 0.6 mg/dL (0.2-1.3); Blood Urea Nitrogen 19 mg/dL (9-20); Calcium 9.1 mg/dL (8.4-10.2); Carbon Dioxide 25 mmol/L (22-32); Chloride 106 mmol/L (98-107); Creatine Kinase 231 U/L (55-170); Estimated Glomerular Filt Rate 58 mL/min (>60); Ethanol (ETOH) < 10 mg/dL; Globulin 2.9 g/dL (1.7-4.1); Glucose 80 mg/dL (70-99); HEMOLYSIS < 15 (0-50); Lactate (Lactic Acid) 0.7 mmol/L (0.7-2.1); Potassium 4.6 mmol/L (3.4-5.1); Sodium 139 mmol/L (137-145); Total Protein 7.2 g/dL (6.3-8.2)
[2025-03-13 20:28] LABS: Troponin I < 0.012 ng/mL (0.01-0.034)
[2025-03-13 20:33] LABS: Procalcitonin 0.041 ng/mL (<0.5)
[2025-03-13] MEDS: LACTATED RINGERS 1,000 ML 1000 ML IV (20:46)
[2025-03-13 20:53] LABS: Ur Creatinine Normal (Normal); Ur Specific Gravity Normal (Normal); Urine Amphetamines Negative (Negative); Urine Barbiturates Negative (Negative); Urine Benzodiazepines Negative (Negative); Urine Cocaine Negative (Negative); Urine MDMA Negative (Negative); Urine Methadone Negative (Negative); Urine Opiates Negative (Negative); Urine Oxycodone Negative (Negative); Urine Phencyclidine Negative (Negative); Urine THC Negative (Negative); Urine Tricyclic Antidepressant Negative (Negative); Urine pH Normal (Normal)
== END 2025-03-13 22:26 | disposition home or self-care (01) ==
PROVIDERS: Emergency Provider Family Medicine; Family Provider Family Medicine; PCP Family Medicine
DX: G30.9 Alzheimer's disease, unspecified (principal); F02.818 Dementia in other diseases classified elsewhere, unspecified severity, with other behavioral disturbance; E86.0 Dehydration; I10 Essential (primary) hypertension
CPT/HCPCS: 36415; 71045; 80053; 80305; 80320; 81003; 82550; 83605; 84145; 84484; 85025; 87040; 93005; 93010; 96360; 99284

== ENCOUNTER 2025-07-29 17:22 | Emergency (ER) | payer MEDICARE, SELFPAY ==
[2025-07-29 17:25] VITALS: BP 155/89; PULSE 52; RESP 18; TEMP 36.5; O2SAT 98; BMI 37.0
[2025-07-29 19:13] VITALS: PULSE 60; O2SAT 97
[2025-07-29 19:14] VITALS: BP 167/89; PULSE 60; RESP 15; O2SAT 99
[2025-07-29 19:30] VITALS: BP 184/84; PULSE 64; O2SAT 97
--- NOTE | 2025-07-29 19:50 | PC.NURSE ---
states pt has dementia and is becoming agitated and is wanting to leave, Dr Mora informed and in to evaluate pt.
--- NOTE | 2025-07-29 19:51 | ED.FALL ---
HPI - Fall General Chief Complaint: Fall Stated Complaint: GLF, No Thinners Time Seen by Provider: 07/29/25 19:09 Source: patient and EMS Mode of arrival: EMS History of Present Illness HPI Narrative: 75-year-old gentleman with a history of Parkinson's disease, dementia hypertension stumbled going down a single step in their backyard fell forward and when his got out of her shower she found him lying on the ground. He was not complaining of any pain. A neighbor came over and helped him get up. He was able to stand without difficulty. was concerned enough that she called medics who brought him in for further evaluation. He is not complaining of pain, there are no abrasions or contusions, his musculoskeletal status is at his baseline parkinsonian status. He is becoming more anxious to go home and requesting to be discharged. He has no recollection of the events of today which his states is his baseline. Not no complaints of headache, chest pain, shortness of breath no reproducible chest pain and no musculoskeletal pain when standing or walking Related Data Home Medications ?Medication ?Instructions ?Recorded ?Confirmed fluoxetine 20 mg capsule 40 mg PO DAILY 07/12/25 fluoxetine 40 mg capsule 40 mg PO DAILY 07/12/25 07/12/25 Previous Rx's ?Medication ?Instructions ?Recorded pantoprazole 40 mg tablet,delayed 40 mg PO DAILY #90 tabs 10/06/24 release bupropion HCl 300 mg 24 hr tablet, 300 mg PO QAM #90 tabs 10/11/24 extended release olanzapine 5 mg tablet 5 mg PO QPM #90 tabs 05/23/25 atenolol 50 mg tablet 50 mg PO DAILY #90 tabs 07/18/25 lisinopril 5 mg tablet 5 mg PO DAILY #90 tabs 07/18/25 atorvastatin 40 mg tablet 40 mg PO DAILY #90 tabs 07/20/25 carbidopa 25 mg-levodopa 100 mg 1 tab PO 4XD #360 tabs 07/28/25 tablet Allergies Allergy/AdvReac Type Severity Reaction Status Date / Time IV CONTRAST IODINE Allergy Mild SWELL UP Uncoded 07/29/25 17:29 AND Review of Systems Review of Systems Narrative: Pertinent positive and negative findings as per HPI Patient History Medical History Major depressive disorder, single episode, severe without psychotic features Foot pain (~2009) Hearing loss (~2009) Colon polyps (~2021) History of squamous cell carcinoma (~2022) History of melanoma (~2022) GERD (gastroesophageal reflux disease) Parkinson's disease (~2022) Generalized anxiety disorder Hyperlipidemia Hypertension Dementia Surgical History Anesthesia History of coronary artery stent placement (~2003) History of back surgery History of knee replacement (~2003) Family History Father Congestive heart failure Mother History of heart disease Sister Diabetes mellitus Smoking Status: Never smoker alcohol intake frequency: holidays/special occasions only Exam Initial Vital Signs Initial Vital Signs: Vital Signs Temperature 97.7 F 07/29/25 17:25 Pulse Rate 52 L 07/29/25 17:25 Respiratory Rate 18 07/29/25 17:25 Blood Pressure 155/89 H 07/29/25 17:25 Pulse Oximetry 98 07/29/25 17:25 Oxygen Delivery Method Room Air 07/29/25 17:25 General: Older appearing no acute distress HEENT: Moist mucous membranes, normal sclera with reactive pupils, Neck: No cervical spine tenderness Respiratory: Lungs are clear to auscultation, no wheezing no rales no rhonchi. Full and symmetrical air movement Cardiac: Regular rate and rhythm no murmurs no bruits Abdomen: Soft, nontender, no rebound or guarding, no flank pain Skin: Warm and dry, no rashes Neurologic: Moderate parkinsonian tremor, wide-based Extremities: No trauma, well perfused, no abrasions or contusions Psych: Fluent speech but does not remember any of his events, uses his to help with memory Course Vital Signs Vital signs: Vital Signs - 8 hr 07/29/25 17:25 07/29/25 19:14 Temperature 97.7 F Pulse Rate 52 L 60 Respiratory Rate 18 15 Blood Pressure 155/89 H 167/89 H Pulse Oximetry 98 99 Oxygen Delivery Method Room Air Room Air MDM - Fall MDM Narrative Medical decision making narrative: 75-year-old gentleman who seemingly stumbled with a mechanical fall off a single step landing on grass and their backyard. Depakote getting up due to his Parkinson's disease. He is able to walk without any pain behaviors, has no complaints of pain at this time. There was no obvious trauma to the head or extremities. Findings and physical exam are reviewed with his . Given the fairly normal exam and lack of pain at this point shared decision-making we opted to not proceed with any additional imaging or blood workup today. They are safe for discharge Discharge Plan Departure Patient Disposition: Home Clinical Impression: Fall Qualifiers: Encounter type: initial encounter Qualified Code(s): W19.XXXA - Unspecified fall, initial encounter Parkinson's disease Qualifiers: Dyskinesia presence: with dyskinesia Fluctuating manifestations: with fluctuating manifestations Qualified Code(s): G20.B2 - Parkinson's disease with dyskinesia, with fluctuations Dementia Qualifiers: Dementia type: Parkinson's disease Dementia severity: moderate Dementia behavioral or psychological symptom: with anxiety Qualified Code(s): G20.A1 - Parkinson's disease without dyskinesia, without mention of fluctuations Instructions: How to Prevent Falls Prescriptions: No Action olanzapine 5 mg tablet 5 mg PO QPM Qty: 90 0RF atenolol 50 mg tablet 50 mg PO DAILY Qty: 90 3RF lisinopril 5 mg tablet 5 mg PO DAILY Qty: 90 3RF atorvastatin 40 mg tablet 40 mg PO DAILY Qty: 90 3RF carbidopa-levodopa 25-100 mg tablet 1 tab PO 4XD Qty: 360 3RF pantoprazole 40 mg tablet,delayed release (DR/EC) 40 mg PO DAILY Qty: 90 3RF bupropion HCl 300 mg tablet extended release 24 hr 300 mg PO QAM Qty: 90 3RF fluoxetine 40 mg capsule 40 mg PO DAILY fluoxetine 20 mg capsule 40 mg PO DAILY Referrals: Loy Strauss DO [Primary Care Provider, Family Practice] Stand Alone Forms: Patient Portal/API
== END 2025-07-29 20:02 | disposition home or self-care (01) ==
PROVIDERS: Emergency Provider Emergency Medicine; PCP Family Medicine
DX: G20.B2 Parkinson's disease with dyskinesia, with fluctuations (principal); W19.XXXA Unspecified fall, initial encounter; M54.50 Low back pain, unspecified; R41.0 Disorientation, unspecified
CPT/HCPCS: 99281

== ENCOUNTER → 2025-08-08 10:28 | Outpatient (CLI) | payer MEDICARE, SELFPAY ==
--- NOTE | 2025-08-08 10:34 | DI.RAD.S_ITS ---
PROCEDURE: XR LUMBAR SPINE 2-3V INDICATIONS: Right hip and lower back pain increasing TECHNIQUE: 3 views of the lumbar spine were acquired. COMPARISON: None. FINDINGS: Bones: 5 [id number]-youbsrh vertebrae are present. There is straightening of normal lumbar lordosis. 1 cm anterolisthesis of L3 on L4 is seen. 6 mm retrolisthesis of L1 on L2 is also seen. Chronic appearing anterior wedge compression deformity at L1 level is seen with up to 30% loss of L1 vertebral body height anteriorly. Loss of disc height, degenerative endplate changes and bilateral facet hypertrophic changes are noted throughout lumbar spine. No acute vertebral body compression fractures. No suspicious bony lesions. Soft tissues: Overlying bowel gas pattern is normal. No suspicious soft tissue calcifications. IMPRESSION: Chronic appearing anterior wedge compression deformity at L1 level with up to 30% loss of L1 vertebral body height anteriorly. No acute vertebral body compression fracture. Spondylolisthesis at L1-2 and L3-4 levels as above. Moderate spondylitic changes are noted throughout lumbar spine. Dictated by: Fabio Acharya M.D. on 08/08/2025 at 13:16 Approved by: Fabio Acharya M.D. on 08/08/2025 at 13:35
--- NOTE | 2025-08-08 10:34 | DI.RAD.S_ITS ---
PROCEDURE: XR HIP W PEL IF DONE RT 2V INDICATIONS: Right hip and lower back pain increasing TECHNIQUE: AP pelvis with lateral view(s) of the right hip(s). COMPARISON: [facility], , XR HIP W PEL IF DONE RT 2V, 09/30/2024, 16:58. FINDINGS: Bones: No fractures or dislocations. Eefg-lo-detyonjk bilateral hip joint osteoarthritic changes are seen. No evidence of avascular necrosis of femoral head. Pelvic ring appears intact. No suspicious bony lesions. Soft tissues: The visualized bowel gas pattern is normal. No suspicious soft tissue calcifications. IMPRESSION: No acute pelvic or hip fracture. Jaql-gv-hacmwwly bilateral hip joint osteoarthritis. No evidence of avascular necrosis. Findings are not significantly changed from 2023 study. Dictated by: Fabio Acharya M.D. on 08/08/2025 at 13:35 Approved by: Fabio Acharya M.D. on 08/08/2025 at 13:36
== END ==
PROVIDERS: PCP Family Medicine; Referring Provider Family Medicine; Visit Provider Family Medicine
DX: M54.50 Low back pain, unspecified (principal); M25.551 Pain in right hip; M43.16 Spondylolisthesis, lumbar region; M43.8X6 Other specified deforming dorsopathies, lumbar region
CPT/HCPCS: 72100; 73502

== ENCOUNTER → 2025-08-12 08:22 | Outpatient (CLI) | payer MEDICARE, SELFPAY ==
--- NOTE | 2025-08-12 08:24 | DI.MRI.S_ITS ---
PROCEDURE: MR LUMBAR SPINE WO CON INDICATIONS: Progressive lower back pain with right-sided radiculopathy, TECHNIQUE: Noncontrast sagittal T1 spin echo and T2 fast echo, sagittal STIR, and T2 fast spin echo through the lumbar spine. In cases with scoliosis, additional coronal T2 fast spin echo may be performed. COMPARISON: [facility], CR, XR LUMBAR SPINE 2-3V, 08/08/2025, 10:39. FINDINGS: Image quality: Excellent. Alignment and Curvature: Grade 1 anterolisthesis L3-4. Otherwise normal bone alignment. Bone Marrow: Diffuse edema and acute, predominantly transverse vertebral body fracture through L1. Fracture plane extends into the right pedicle and edema also extends into the left pedicle. No significant retropulsion of fracture fragments into the canal. There is mild anterior vertebral body height loss. Minor type 1 reactive Modic changes along the right aspect at the L3-4 level. Spinal Cord: Conus medullaris terminates at the L1 level. Visualized cord demonstrates normal signal and size. Paraspinous Soft Tissues: No paravertebral masses. T12-L1: Normal appearance. L1-L2: Disc desiccation. Mild circumferential disc bulge and mild facet arthropathy. Probably moderate bilateral foraminal stenosis. L2-L3: Disc desiccation. Minor circumferential disc osteophyte. Mild facet arthropathy. No foraminal or central canal stenosis. L3-L4: Grade 1 anterolisthesis and diffuse posterior disc uncovering. Disc desiccation and moderate to severe disc height loss. Moderate facet arthropathy. Severe bilateral foraminal stenosis. Mild central canal narrowing. L4-L5: Heterogeneous disc signal and mild diffuse disc height loss. Small focal central disc protrusion superimposed on mild diffuse disc bulge. Moderate facet arthropathy. Mild to moderate central canal narrowing. No significant foraminal stenosis. L5-S1: Normal disc. Moderate facet arthropathy, left worse than right. IMPRESSION: Acute, nondisplaced burst fracture of L1 with slight anterior vertebral body height loss and fracture plane involving the right pedicle. No retropulsed fracture fragments. There may be moderate foraminal stenosis at the L1-2 level, but this is not well seen due to artifact. Severe, chronic appearing bilateral neural foraminal stenosis at L3-4, right probably worse than left. Report alert initiated to the ordering provider's office 08/15/25 at 15:25 hours. Dictated by: Carrie Jim M.D. on 08/15/2025 at 15:08 Approved by: Carrie Jim M.D. on 08/15/2025 at 15:25
== END ==
LOC: MRI 08:23
PROVIDERS: Family Provider Family Medicine; PCP Family Medicine; Referring Provider Family Medicine; Visit Provider Family Medicine
DX: S32.011A Stable burst fracture of first lumbar vertebra, initial encounter for closed fracture (principal); M48.061 Spinal stenosis, lumbar region without neurogenic claudication; M54.50 Low back pain, unspecified; G89.29 Other chronic pain
CPT/HCPCS: 72148